=== PATIENT | female | born 1945 | race Caucasian/White ===

== ENCOUNTER → 2016-08-02 | Outpatient (CLI) | payer MEDICARE, MEDICAID ==
[~2016-08-02] MED LIST: AMBR1TAB PO; CIPR-217 PO; CYANOCOBALAMIN (B-12) 1000 MCG/1 ML VIAL IM ONE; CYANOCOBALAMIN (B-12) 1000 MCG/1 ML VIAL ONE; OXY20CRT PO; TEMA30CA PO; WARF3TAB22 PO
[2016-08-02 13:24] VITALS: BP 125/89
== END | disposition home or self-care (01) ==
LOC: CHF HDHVI 13:05
PROVIDERS: ATTEND Internal Medicine Cardiovascular Disease
DX: I27.0 Primary pulmonary hypertension (principal); D64.9 Anemia, unspecified; E78.00 Pure hypercholesterolemia, unspecified; F32.9 Major depressive disorder, single episode, unspecified
CPT/HCPCS: 93701; 96372; G0463; J3420

== ENCOUNTER → 2016-10-05 | Outpatient (CLI) | payer MEDICARE, MEDICAID ==
[2016-10-05 14:00] VITALS: BP 125/83
== END | disposition home or self-care (01) ==
LOC: CHF HDHVI 13:05
PROVIDERS: ATTEND Internal Medicine Cardiovascular Disease
DX: I11.0 Hypertensive heart disease with heart failure (principal); I50.9 Heart failure, unspecified; D64.9 Anemia, unspecified; E11.9 Type 2 diabetes mellitus without complications
CPT/HCPCS: 93701; 96372; G0463; J3420

== ENCOUNTER → 2016-11-03 | Outpatient (CLI) | payer MEDICARE, MEDICAID ==
[2016-11-03 14:20] VITALS: BP 105/76
[2016-11-03 14:34] VITALS: BP 110/69
== END | disposition home or self-care (01) ==
LOC: CHF HDHVI 14:29
PROVIDERS: ATTEND Internal Medicine Cardiovascular Disease
DX: I50.9 Heart failure, unspecified (principal); I27.2 Other secondary pulmonary hypertension; R53.83 Other fatigue
CPT/HCPCS: 96372; G0463; J3420

== ENCOUNTER 2016-11-07 09:16 | Emergency (ER) | payer MEDICARE, MEDICAID ==
[~2016-11-07] VITALS: Ht 167.6 cm; Wt 102.1 kg
[~2016-11-07 09:16] MED LIST changes: -CYANOCOBALAMIN (B-12) 1000 MCG/1 ML VIAL IM ONE; -CYANOCOBALAMIN (B-12) 1000 MCG/1 ML VIAL ONE
[2016-11-07] MEDS ORDERED: KETOROLAC TROMETH 60MG/2ML VIAL IM ONE (10:30)
[2016-11-07] MEDS ORDERED: METHOCARBAMOL 500 MG TAB PO ONE (11:30)
[2016-11-07 12:58] VITALS: BP 112/67
[2016-11-09] MEDS ORDERED: RIOC1TAB9 PO (23:38)
== END 2016-11-07 13:28 | disposition home or self-care (01) ==
LOC: EDBD 09:16 → ER 09:18
DX: S82.54XA Nondisplaced fracture of medial malleolus of right tibia, initial encounter for closed fracture (principal); S80.01XA Contusion of right knee, initial encounter; E11.9 Type 2 diabetes mellitus without complications; I10 Essential (primary) hypertension; M19.90 Unspecified osteoarthritis, unspecified site; V49.9XXA Car occupant (driver) (passenger) injured in unspecified traffic accident, initial encounter; Y93.89 Activity, other specified; Y99.8 Other external cause status; Y92.89 Other specified places as the place of occurrence of the external cause; Z91.040 Latex allergy status
CPT/HCPCS: 29515; 73560; 73610; 96372; 99284; J1885

== ENCOUNTER → 2017-01-29 | Outpatient (CLI) | payer MEDICARE, MEDICAID ==
[~2017-01-29] MED LIST changes: +CYANOCOBALAMIN (B-12) 1000 MCG/1 ML VIAL IM ONE; +CYANOCOBALAMIN (B-12) 1000 MCG/1 ML VIAL ONE; +METO10TA3 PO; +RIOC1TAB9 PO
[2017-01-29 13:15] VITALS: BP 136/72
[2017-01-29 14:25] VITALS: BP 108/64
[2017-01-29 16:56] LABS: Basophils # (auto) 0 uL; CONDITION Y; Eosinophils # (auto) 0.2 uL; Eosinophils % (auto) 3.9 % (0.0-7.0); Hemoglobin 13.4 g/dL (12.2-16.2); Lymphocytes # (auto) 1.9 uL; Mean Corpuscular Hemoglobin 30.3 pg (28.0-32.0); Mean Corpuscular Hgb Conc. 33.4 g/dL (32.0-36.0); Mean Corpuscular Volume 90.7 fL (80.0-100.0); Mean Platelet Volume 9.6 fL (7.4-10.4); Monocytes # (auto) 0.4 uL; Monocytes % (auto) 8.5 % (0.0-12.0); Neutrophils # (auto) 1.8 uL; Neutrophils % (auto) 41.6 % (37.0-80.0); Platelet Count (auto) 248 10^3/uL (140-450); Red Cell Distribution Width 14.1 % (11.6-16.0); White Blood Cell 4.2 10^3/uL (4.4-10.8)
[2017-01-29 17:16] LABS: Albumin 3.2 g/dL (3.4-5.0); BUN/Creatinine Ratio 11.4; Bilirubin, Total 0.3 mg/dL (0.2-1.0); Calcium 8.2 mg/dL (8.5-10.1); Magnesium 2.5 mg/dL (1.6-2.6); Potassium 3.5 mmol/L (3.5-5.1); Total Protein 6.9 g/dL (6.4-8.2)
== END | disposition home or self-care (01) ==
LOC: CHF HDHVI 13:13
PROVIDERS: ATTEND Internal Medicine Cardiovascular Disease
DX: I10 Essential (primary) hypertension (principal); E11.9 Type 2 diabetes mellitus without complications; D64.9 Anemia, unspecified; E55.9 Vitamin D deficiency, unspecified; Z79.899 Other long term (current) drug therapy
CPT/HCPCS: 36415; 80053; 82306; 83036; 83735; 85025; 93701; 96372; G0463; J3420

== ENCOUNTER → 2017-03-07 | Outpatient (CLI) | payer MEDICARE, MEDICAID ==
[2017-03-07 14:25] VITALS: BP 113/60
[2017-03-07 15:30] VITALS: BP 113/60
== END | disposition home or self-care (01) ==
LOC: CHF HDHVI 14:15
PROVIDERS: ATTEND Internal Medicine Cardiovascular Disease
DX: I11.0 Hypertensive heart disease with heart failure (principal); I50.9 Heart failure, unspecified
CPT/HCPCS: 93701; 96372; G0463; J3420

== ENCOUNTER → 2017-04-10 | Outpatient (CLI) | payer MEDICARE, MEDICAID ==
[~2017-04-10] MED LIST changes: -CYANOCOBALAMIN (B-12) 1000 MCG/1 ML VIAL IM ONE; -CYANOCOBALAMIN (B-12) 1000 MCG/1 ML VIAL ONE
[2017-04-10 12:35] VITALS: BP 148/68
[2017-04-10 13:15] VITALS: BP 158/76
[2017-04-10 13:22] LABS: INR 1.1 (0.7-1.3); Prothrombin Time 13.7 sec (9.0-12.0)
[2017-04-10 16:36] LABS: Potassium 4.1 mmol/L (3.5-5.1)
== END | disposition home or self-care (01) ==
LOC: CHF HDHVI 12:36
PROVIDERS: ATTEND Internal Medicine Cardiovascular Disease
DX: E87.6 Hypokalemia (principal); R94.4 Abnormal results of kidney function studies; I10 Essential (primary) hypertension; Z79.01 Long term (current) use of anticoagulants
CPT/HCPCS: 36415; 82565; 84132; 84520; 85610; 93701; G0463

== ENCOUNTER → 2017-07-04 | Outpatient (CLI) | payer MEDICARE, MEDICAID ==
[~2017-07-04] VITALS: Ht 30.5 cm; Wt 0.5 kg
[~2017-07-04] MED LIST changes: +CYANOCOBALAMIN (B-12) 1000 MCG/1 ML VIAL IM ONE; +CYANOCOBALAMIN (B-12) 1000 MCG/1 ML VIAL ONE
[2017-07-04 10:15] VITALS: BP 142/83
[2017-07-04 11:00] VITALS: BP 113/82
[2017-07-04 12:12] LABS: Basophils # (auto) 0.1 uL; Basophils % (auto) 1.3 % (0.0-2.0); Eosinophils # (auto) 0.1 uL; Eosinophils % (auto) 2.9 % (0.0-7.0); Hematocrit 41.5 % (36.0-46.0); Hemoglobin 13.7 g/dL (12.2-16.2); Lymphocytes # (auto) 2.2 uL; Lymphocytes % (auto) 56.8 % (10.0-50.0); Mean Corpuscular Hemoglobin 29.6 pg (28.0-32.0); Mean Corpuscular Hgb Conc. 33.1 g/dL (32.0-36.0); Mean Corpuscular Volume 89.5 fL (80.0-100.0); Monocytes # (auto) 0.4 uL; Monocytes % (auto) 9.6 % (0.0-12.0); Neutrophils # (auto) 1.2 uL; Neutrophils % (auto) 29.4 % (37.0-80.0); Nucleated Red Blood Cells % 0.1 %; Platelet Count (auto) 191 10^3/uL (140-450); Red Blood Cells 4.64 10^6/uL (4.0-5.20); Red Cell Distribution Width 13.6 % (11.8-14.3); White Blood Cell 3.9 10^3/uL (4.4-10.8)
[2017-07-04 12:28] LABS: Potassium 3.8 mmol/L (3.5-5.1)
[2017-07-04 12:29] LABS: BUN/Creatinine Ratio 11.1
[2017-07-04 12:30] LABS: Calcium 8.7 mg/dL (8.5-10.1)
== END | disposition home or self-care (01) ==
LOC: CHF HDHVI 10:23
PROVIDERS: ATTEND Internal Medicine Cardiovascular Disease
DX: D64.9 Anemia, unspecified (principal); D51.9 Vitamin B12 deficiency anemia, unspecified; I10 Essential (primary) hypertension; I27.21 Secondary pulmonary arterial hypertension; R53.83 Other fatigue
CPT/HCPCS: 36415; 80048; 82607; 85025; 96372; G0463; J3420

== ENCOUNTER → 2017-08-30 | Outpatient (CLI) | payer MEDICARE, MEDICAID ==
[2017-08-30 12:35] VITALS: BP 139/71
[2017-08-30 13:42] VITALS: BP 146/76
[2017-08-30 16:14] LABS: Albumin 3.4 g/dL (3.4-5.0); BUN/Creatinine Ratio 11.8; Bilirubin, Total 0.3 mg/dL (0.2-1.0); Calcium 8.6 mg/dL (8.5-10.1); Magnesium 2.9 mg/dL (1.6-2.6); Potassium 3.9 mmol/L (3.5-5.1); Total Protein 7.3 g/dL (6.4-8.2)
[2017-08-30 16:34] LABS: Basophils # (auto) 0.1 uL; Basophils % (auto) 1.2 % (0.0-2.0); Eosinophils # (auto) 0.1 uL; Hematocrit 40.6 % (36.0-46.0); Hemoglobin 13.4 g/dL (12.2-16.2); Lymphocytes # (auto) 1.9 uL; Lymphocytes % (auto) 43.5 % (10.0-50.0); Mean Corpuscular Hemoglobin 30.3 pg (28.0-32.0); Mean Corpuscular Hgb Conc. 33.1 g/dL (32.0-36.0); Mean Corpuscular Volume 91.4 fL (80.0-100.0); Monocytes # (auto) 0.5 uL; Monocytes % (auto) 11.8 % (0.0-12.0); Neutrophils # (auto) 1.8 uL; Neutrophils % (auto) 40.5 % (37.0-80.0); Nucleated Red Blood Cells % 0.9 %; Platelet Count (auto) 214 10^3/uL (140-450); Red Blood Cells 4.44 10^6/uL (4.0-5.20); Red Cell Distribution Width 13.9 % (11.8-14.3); White Blood Cell 4.4 10^3/uL (4.4-10.8)
== END | disposition home or self-care (01) ==
LOC: CHF HDHVI 12:34
PROVIDERS: ATTEND Internal Medicine Cardiovascular Disease
DX: E83.40 Disorders of magnesium metabolism, unspecified (principal); D64.9 Anemia, unspecified; I10 Essential (primary) hypertension; I27.21 Secondary pulmonary arterial hypertension; R06.02 Shortness of breath; E11.9 Type 2 diabetes mellitus without complications
CPT/HCPCS: 36415; 80053; 83735; 85025; 85610; 93701; 94618; 96372; G0463; J3420

== ENCOUNTER → 2017-11-07 | Outpatient (CLI) | payer MEDICARE, MEDICAID ==
[2017-11-07 10:05] VITALS: BP 148/67
[2017-11-07 11:00] VITALS: BP 126/75
[2017-11-07 12:13] LABS: Basophils # (auto) 0 uL; Eosinophils # (auto) 0.1 uL; Eosinophils % (auto) 2.1 % (0.0-7.0); Hematocrit 41.4 % (36.0-46.0); Hemoglobin 13.5 g/dL (12.2-16.2); Lymphocytes # (auto) 1.7 uL; Lymphocytes % (auto) 43.2 % (10.0-50.0); Mean Corpuscular Hemoglobin 29.3 pg (28.0-32.0); Mean Corpuscular Hgb Conc. 32.7 g/dL (32.0-36.0); Mean Corpuscular Volume 89.6 fL (80.0-100.0); Monocytes # (auto) 0.3 uL; Monocytes % (auto) 8.2 % (0.0-12.0); Neutrophils # (auto) 1.7 uL; Neutrophils % (auto) 45.5 % (37.0-80.0); Nucleated Red Blood Cells % 0.1 %; Platelet Count (auto) 221 10^3/uL (140-450); Red Blood Cells 4.62 10^6/uL (4.0-5.20); Red Cell Distribution Width 13.6 % (11.8-14.3); White Blood Cell 3.8 10^3/uL (4.4-10.8)
[2017-11-07 12:18] LABS: BUN/Creatinine Ratio 14.3; Calcium 8.7 mg/dL (8.5-10.1); Potassium 3.7 mmol/L (3.5-5.1)
== END | disposition home or self-care (01) ==
LOC: CHF HDHVI 10:11
PROVIDERS: ATTEND Internal Medicine Cardiovascular Disease
DX: D51.9 Vitamin B12 deficiency anemia, unspecified (principal); I11.0 Hypertensive heart disease with heart failure; I50.23 Acute on chronic systolic (congestive) heart failure; D64.9 Anemia, unspecified; E11.9 Type 2 diabetes mellitus without complications; I27.21 Secondary pulmonary arterial hypertension; R53.83 Other fatigue
CPT/HCPCS: 36415; 80048; 85025; 85610; 96372; G0463; J3420

== ENCOUNTER → 2018-04-10 | Outpatient (CLI) | payer MEDICARE, MEDICAID ==
[2018-04-10 12:35] VITALS: BP 107/66
[2018-04-10 15:41] LABS: Basophils # (auto) 0 uL; Basophils % (auto) 0.9 % (0.0-2.0); Eosinophils # (auto) 0.1 uL; Eosinophils % (auto) 3.1 % (0.0-7.0); Hematocrit 40.7 % (36.0-46.0); Hemoglobin 13.8 g/dL (12.2-16.2); Lymphocytes # (auto) 2.1 uL; Lymphocytes % (auto) 43.9 % (10.0-50.0); Mean Corpuscular Hemoglobin 30.4 pg (28.0-32.0); Mean Corpuscular Hgb Conc. 33.8 g/dL (32.0-36.0); Monocytes # (auto) 0.4 uL; Monocytes % (auto) 7.8 % (0.0-12.0); Neutrophils # (auto) 2.1 uL; Neutrophils % (auto) 44.3 % (37.0-80.0); Nucleated Red Blood Cells % 0.6 %; Platelet Count (auto) 194 10^3/uL (140-450); Red Blood Cells 4.52 10^6/uL (4.0-5.20); Red Cell Distribution Width 14.1 % (11.8-14.3); White Blood Cell 4.7 10^3/uL (4.4-10.8)
[2018-04-10 15:48] LABS: BUN/Creatinine Ratio 15.3; Calcium 8.2 mg/dL (8.5-10.1); Magnesium 2.4 mg/dL (1.6-2.6); Potassium 3.8 mmol/L (3.5-5.1)
== END | disposition home or self-care (01) ==
LOC: CHF HDHVI 11:49
PROVIDERS: ATTEND Internal Medicine Cardiovascular Disease
DX: D64.9 Anemia, unspecified (principal); E83.40 Disorders of magnesium metabolism, unspecified; I10 Essential (primary) hypertension
CPT/HCPCS: 36415; 80048; 82607; 83735; 85025; 93701; 96372; G0463; J3420

== ENCOUNTER → 2018-06-11 | Outpatient (CLI) | payer MEDICARE, MEDICAID ==
[2018-06-11 11:30] VITALS: BP 124/61
[2018-06-11 12:22] VITALS: BP 123/74
== END | disposition home or self-care (01) ==
LOC: CHF HDHVI 11:33
PROVIDERS: ATTEND Internal Medicine Cardiovascular Disease
DX: I27.21 Secondary pulmonary arterial hypertension (principal); R53.83 Other fatigue; R53.81 Other malaise; E11.9 Type 2 diabetes mellitus without complications; M25.571 Pain in right ankle and joints of right foot; I11.0 Hypertensive heart disease with heart failure; I50.22 Chronic systolic (congestive) heart failure; J44.9 Chronic obstructive pulmonary disease, unspecified; E78.5 Hyperlipidemia, unspecified; M19.90 Unspecified osteoarthritis, unspecified site; I25.10 Atherosclerotic heart disease of native coronary artery without angina pectoris; I48.91 Unspecified atrial fibrillation; E78.00 Pure hypercholesterolemia, unspecified; F32.9 Major depressive disorder, single episode, unspecified; Z79.01 Long term (current) use of anticoagulants; Z79.891 Long term (current) use of opiate analgesic; Z95.0 Presence of cardiac pacemaker
CPT/HCPCS: 93701; 96372; G0463; J3420

== ENCOUNTER → 2018-09-19 | Outpatient (CLI) | payer MEDICARE, MEDICAID ==
[2018-09-19 12:20] VITALS: BP 138/65
--- NOTE | 2018-09-19 12:20 | NUR ---
PT. TO [facility]F CLINIC FOR EVAL. AND TX. PT. IS TEARFUL AT THIS TIME, SAYING SHE IS HAVING TO GIVE AWAY HER PUPPIES. PT. LAST SEEN IN CLINIC 3 MONTHS AGO WITH HX OF NON COMPLIANCE ON FOLLOW UP APPTS IN CLINIC , NOW PT. LIVING IN [place] WITH FAMILY. NEW ORDERS RECEIVED AND CARRIED OUT SEE NICOLE ASSESS.
--- NOTE | 2018-09-19 12:50 | NUR ---
CARDIODYNAMICS DONE WITH RESULTS REVIEWED WITH PT, AND CHARTED. PT'S WT HAS BEEN STABLE FOR PAST THREE MOS. PT STATES SHE HAS MORE ENERGY BUT ALSO HAS EPISODES OF DIZZINESS AND WANTS PACEMAKER REPLACED. PT. HAS APPT. WITH DR. COREAS IN 30 DAYS, AND LAST INTERROGATION WAS DONE APPROX. 3 MOS. AGO WITH NO SPECIFIC INSTRUCTIONS ON FOLLOW UP PER PT.
--- NOTE | 2018-09-19 12:51 | NUR ---
NOTE: CARDIODYNAMICS SHOW ATRIAL PACED AT 65 WITH 100% CAPTURE. SAME PULSE ON LAST VISIT OF
[2018-09-19 13:15] VITALS: BP 127/75
--- NOTE | 2018-09-19 13:15 | NUR ---
Discharge Instructions See e-MAR for any mediations given with this visit. Patient education given on disease process. Patient verbalized understanding. Previous labs reviewed. Patient discharged in stable condition with after care instructions and follow up appointment.PT. TO FOLLOW UP WITH APPT. WITH DR. COREAS PER APPT.
[2018-09-19 15:52] LABS: Basophils # (auto) 0 uL; Basophils % (auto) 0.7 % (0.0-2.0); Eosinophils # (auto) 0.1 uL; Eosinophils % (auto) 1.9 % (0.0-7.0); Hematocrit 43.1 % (36.0-46.0); Hemoglobin 14.4 g/dL (12.2-16.2); Lymphocytes # (auto) 1.8 uL; Lymphocytes % (auto) 37.1 % (10.0-50.0); Mean Corpuscular Hemoglobin 29.9 pg (28.0-32.0); Mean Corpuscular Hgb Conc. 33.4 g/dL (32.0-36.0); Mean Corpuscular Volume 89.5 fL (80.0-100.0); Monocytes # (auto) 0.6 uL; Monocytes % (auto) 11.2 % (0.0-12.0); Neutrophils # (auto) 2.4 uL; Neutrophils % (auto) 49.1 % (37.0-80.0); Nucleated Red Blood Cells % 0.4 %; Platelet Count (auto) 218 10^3/uL (140-450); Red Blood Cells 4.82 10^6/uL (4.0-5.20); Red Cell Distribution Width 13.9 % (11.8-14.3); White Blood Cell 4.9 10^3/uL (4.4-10.8)
[2018-09-19 16:01] LABS: Albumin 3.8 g/dL (3.4-5.0); BUN/Creatinine Ratio 13.4; Calcium 8.9 mg/dL (8.5-10.1); Potassium 3.7 mmol/L (3.5-5.1)
[2018-09-19 16:03] LABS: Bilirubin, Total 0.3 mg/dL (0.2-1.0); Total Protein 7.7 g/dL (6.4-8.2)
== END | disposition home or self-care (01) ==
LOC: CHF HDHVI 11:53
PROVIDERS: ATTEND Internal Medicine Cardiovascular Disease
DX: D51.9 Vitamin B12 deficiency anemia, unspecified (principal); E55.9 Vitamin D deficiency, unspecified; I27.21 Secondary pulmonary arterial hypertension; I25.10 Atherosclerotic heart disease of native coronary artery without angina pectoris; E11.9 Type 2 diabetes mellitus without complications; I10 Essential (primary) hypertension
CPT/HCPCS: 36415; 80053; 82306; 82607; 83036; 85025; 93701; 96372; G0463; J3420

== ENCOUNTER → 2018-11-21 | Outpatient (CLI) | payer MEDICARE, MEDICAID ==
[~2018-11-21] MED LIST changes: -CYANOCOBALAMIN (B-12) 1000 MCG/1 ML VIAL IM ONE
[2018-11-21 11:45] VITALS: BP 123/79
[2018-11-21 12:30] VITALS: BP 138/68
--- NOTE | 2018-11-21 12:30 | NUR ---
IN TO CLINIC FOR PAH FOLLOWUP. WITHOUT DISTRESS OR DISCOMFORT. VERBALIZING EASILY. CARDIODYNAMICS DONE AND REVIEWED BY NEAL STERLING. CLINIC PROVIDER CONSULTED AND ORDERS RECEIVED. MEDICATED PER ORDER. DISCHARGED TO SELF CARE WITHOUT DISTRESS. MEDICATION ADMINISTRATION VITAMIN B12 1000 MCG TO LEFT DELTOID AT 1218
[2018-11-21 15:55] LABS: Albumin 3.8 g/dL (3.4-5.0); Calcium 8.7 mg/dL (8.5-10.1); Magnesium 2.5 mg/dL (1.6-2.6); Potassium 3.8 mmol/L (3.5-5.1)
[2018-11-21 15:58] LABS: BUN/Creatinine Ratio 16.9; Bilirubin, Total 0.6 mg/dL (0.2-1.0); Total Protein 7.5 g/dL (6.4-8.2)
[2018-11-21 16:01] LABS: Basophils # (auto) 0 uL; Basophils % (auto) 0.7 % (0.0-2.0); Eosinophils # (auto) 0.1 uL; Eosinophils % (auto) 1.1 % (0.0-7.0); Hematocrit 40.3 % (36.0-46.0); Hemoglobin 13.3 g/dL (12.2-16.2); Lymphocytes # (auto) 2.1 uL; Lymphocytes % (auto) 41.4 % (10.0-50.0); Mean Corpuscular Hemoglobin 29.6 pg (28.0-32.0); Mean Corpuscular Hgb Conc. 33.1 g/dL (32.0-36.0); Mean Corpuscular Volume 89.3 fL (80.0-100.0); Monocytes # (auto) 0.5 uL; Monocytes % (auto) 10.3 % (0.0-12.0); Neutrophils # (auto) 2.4 uL; Neutrophils % (auto) 46.5 % (37.0-80.0); Nucleated Red Blood Cells % 0.6 %; Platelet Count (auto) 209 10^3/uL (140-450); Red Blood Cells 4.51 10^6/uL (4.0-5.20); Red Cell Distribution Width 14.1 % (11.8-14.3); White Blood Cell 5.1 10^3/uL (4.4-10.8)
== END | disposition home or self-care (01) ==
LOC: CHF HDHVI 11:30
PROVIDERS: ATTEND Internal Medicine Cardiovascular Disease
DX: D64.9 Anemia, unspecified (principal); E83.40 Disorders of magnesium metabolism, unspecified; I11.0 Hypertensive heart disease with heart failure; I50.9 Heart failure, unspecified
CPT/HCPCS: 36415; 80053; 83735; 85025; J3420

== ENCOUNTER → 2019-01-27 | Outpatient (CLI) | payer MEDICARE, MEDICAID ==
[~2019-01-27] MED LIST changes: +CYANOCOBALAMIN (B-12) 1000 MCG/1 ML VIAL IM ONE
[2019-01-27 12:25] VITALS: BP 141/71
--- NOTE | 2019-01-27 12:45 | NUR ---
PATIENT REFUSING TO ALLOW LAB DRAW, PATIENT REFUSES 6MWT AND CARDIODYNAMICS WELL.
--- NOTE | 2019-01-27 13:15 | NUR ---
PATIENT EDUCATED ON THE IMPORTANCE OF TEST IN MANAGING PAH AND GOING TO MD APPT. FOR MEDICATION MANAGEMENT.
[2019-01-27 13:51] VITALS: BP 162/67
--- NOTE | 2019-01-27 13:51 | NUR ---
[facility] CLINIC Discharge Instructions See e-MAR for any mediations given with this visit. Patient education given on disease process. Patient verbalized understanding. Previous labs reviewed. Patient discharged in stable condition with after care instructions and follow up appointment. NOTE INR 3.6, PATIENT WAS TAKING EXTRA DOSES PATIENT EDUCATED TO TAKE COUMADIN PRESCRIBED. B12 IM L DELTOID ADMIN BY JAELYN MACDONALD. CARDIODYNAMICS PERFORMED BY JAELYN MACDONALD AND REVIEWED BY ANNA STERLING
[2019-01-27 16:16] LABS: Albumin 3.7 g/dL (3.4-5.0); Calcium 8.8 mg/dL (8.5-10.1); Potassium 3.8 mmol/L (3.5-5.1)
[2019-01-27 16:19] LABS: BUN/Creatinine Ratio 15.7; Bilirubin, Total 0.5 mg/dL (0.2-1.0); Total Protein 7.6 g/dL (6.4-8.2)
[2019-01-27 17:36] LABS: Basophils # (auto) 0 uL; Basophils % (auto) 0.7 % (0.0-2.0); Eosinophils # (auto) 0.1 uL; Eosinophils % (auto) 1.3 % (0.0-7.0); Hematocrit 42.7 % (36.0-46.0); Hemoglobin 14.1 g/dL (12.2-16.2); Lymphocytes # (auto) 1.8 uL; Lymphocytes % (auto) 32.2 % (10.0-50.0); Mean Corpuscular Hemoglobin 29.4 pg (28.0-32.0); Mean Corpuscular Hgb Conc. 33.1 g/dL (32.0-36.0); Mean Corpuscular Volume 88.7 fL (80.0-100.0); Monocytes # (auto) 0.4 uL; Monocytes % (auto) 6.8 % (0.0-12.0); Neutrophils # (auto) 3.3 uL; Platelet Count (auto) 194 10^3/uL (140-450); Red Blood Cells 4.81 10^6/uL (4.0-5.20); Red Cell Distribution Width 14.9 % (11.8-14.3); White Blood Cell 5.6 10^3/uL (4.4-10.8)
== END | disposition home or self-care (01) ==
LOC: CHF HDHVI 12:26
PROVIDERS: ATTEND Internal Medicine Cardiovascular Disease
DX: D51.9 Vitamin B12 deficiency anemia, unspecified (principal); R53.1 Weakness; I25.10 Atherosclerotic heart disease of native coronary artery without angina pectoris; I48.91 Unspecified atrial fibrillation; K90.9 Intestinal malabsorption, unspecified; I10 Essential (primary) hypertension; Z79.899 Other long term (current) drug therapy
CPT/HCPCS: 36415; 80053; 82306; 82607; 83036; 85025; 85610; 93701; 96372; G0463; J3420

== ENCOUNTER → 2019-03-24 | Outpatient (CLI) | payer MEDICARE, MEDICAID ==
[~2019-03-24] MED LIST changes: -CYANOCOBALAMIN (B-12) 1000 MCG/1 ML VIAL IM ONE; -CYANOCOBALAMIN (B-12) 1000 MCG/1 ML VIAL ONE; +DIPH25CA66 PO; +LINA290C PO; +TIZA4CAP7 PO
[2019-03-24 12:45] VITALS: BP 162/81
--- NOTE | 2019-03-24 12:45 | NUR ---
CHF PT ARRIVED AT THE CHF CLINIC FOR PREOP CXR, EKG LAB. VSS 0 DISTRESS
[2019-03-24 13:00] VITALS: BP 178/61
--- NOTE | 2019-03-24 13:00 | NUR ---
Discharge Instructions See e-MAR for any mediations given with this visit. Patient education given on disease process. Patient verbalized understanding. Previous labs reviewed. Patient discharged in stable condition with after care instructions and follow up appointment.
[2019-03-24 16:12] LABS: Basophils # (auto) 0 uL; Basophils % (auto) 0.5 % (0.0-2.0); Eosinophils # (auto) 0.1 uL; Hematocrit 43.7 % (36.0-46.0); Hemoglobin 14.7 g/dL (12.2-16.2); Lymphocytes # (auto) 2.9 uL; Lymphocytes % (auto) 40.1 % (10.0-50.0); Mean Corpuscular Hemoglobin 29.9 pg (28.0-32.0); Mean Corpuscular Hgb Conc. 33.8 g/dL (32.0-36.0); Mean Corpuscular Volume 88.6 fL (80.0-100.0); Monocytes # (auto) 0.6 uL; Neutrophils # (auto) 3.6 uL; Neutrophils % (auto) 49.4 % (37.0-80.0); Platelet Count (auto) 204 10^3/uL (140-450); Red Blood Cells 4.93 10^6/uL (4.0-5.20); Red Cell Distribution Width 14.5 % (11.8-14.3); White Blood Cell 7.2 10^3/uL (4.4-10.8)
[2019-03-24 16:20] LABS: BUN/Creatinine Ratio 11.1; Calcium 8.7 mg/dL (8.5-10.1); Potassium 3.6 mmol/L (3.5-5.1)
[2019-03-24 16:24] LABS: INR 1.04 (0.9-1.15); Partial Thromboplastin Time 26.8 sec (23.64-32.05)
== END | disposition home or self-care (01) ==
LOC: Rad HDHVI 12:05
PROVIDERS: ATTEND Internal Medicine Cardiovascular Disease
DX: Z01.812 Encounter for preprocedural laboratory examination (principal); I27.0 Primary pulmonary hypertension; I49.5 Sick sinus syndrome; Z95.0 Presence of cardiac pacemaker; E11.9 Type 2 diabetes mellitus without complications
CPT/HCPCS: 36415; 71046; 80048; 85025; 85610; 85730; 93005; G0463

== ENCOUNTER 2019-03-26 08:03 | Day surgery (SDC) | payer MEDICARE, MEDICAID ==
[~2019-03-26] VITALS: Ht 167.6 cm; Wt 93.0 kg
[~2019-03-26 08:03] MED LIST changes: -AMBR1TAB PO; -CIPR-217 PO; -METO10TA3 PO; -TEMA30CA PO
[2019-03-26] MEDS ORDERED: MIDAZOLAM HCL 1MG/1ML-2 ML VIAL ONE (10:10)
[2019-03-26] MEDS ORDERED: fentaNYL CITRATE 100 MCG/2 ML VL ONE (10:10)
[2019-03-26] MEDS ORDERED: VANCOMYCIN HCL 1000 MG VL ONE (10:10)
[2019-03-26] MEDS ORDERED: VANCOMYCIN 1GM/250ML 250 ML IV ONE (10:11)
[2019-03-26] MEDS ORDERED: LIDOCAINE 2%HCL (LOCAL ANESTH.) INJ 20ML MDV ONE (10:29)
[2019-03-26] MEDS ORDERED: diphenhdrAMINE HCL 50 MG/1 ML VL ONE (10:35)
[2019-03-26] MEDS ORDERED: HYDROcodone-ACET 5/325MG TAB PO PRN (11:45)
== END 2019-03-26 13:00 | disposition home or self-care (01) ==
LOC: CATH 08:03
PROVIDERS: ATTEND Internal Medicine
DX: Z45.010 Encounter for checking and testing of cardiac pacemaker pulse generator [battery] (principal); I25.2 Old myocardial infarction; I27.21 Secondary pulmonary arterial hypertension; F32.9 Major depressive disorder, single episode, unspecified; F41.9 Anxiety disorder, unspecified; Z79.899 Other long term (current) drug therapy; Z91.040 Latex allergy status; Z79.01 Long term (current) use of anticoagulants
CPT/HCPCS: 33228; C1785; J1200; J2250; J3010; J3370; J7030; 99152; 99153

== ENCOUNTER → 2019-04-03 | Outpatient (CLI) | payer MEDICARE, MEDICAID ==
[~2019-04-03] MED LIST changes: +CYANOCOBALAMIN (B-12) 1000 MCG/1 ML VIAL IM ONE; +CYANOCOBALAMIN (B-12) 1000 MCG/1 ML VIAL ONE; +KETOROLAC TROMETH 60MG/2ML VIAL IM ONE; +KETOROLAC TROMETH 60MG/2ML VIAL ONE
[2019-04-03 12:05] VITALS: BP 110/71
[2019-04-03 12:50] VITALS: BP 165/77
--- NOTE | 2019-04-03 12:50 | NUR ---
IN TO CLINIC FOR 'STITCHES REMOVED". PT IS S/P GENERATOR CHANGE ON 03/26/19. STERI STRIP INTACT OVER SURGICAL SITE. NOTED TO HAVE ELEVATED RAISED AREAS AROUND STERI STRIPS. PT REPORTS THAT SHE WAS ALLERGIC TO THE DRESSING AND THAT SHE HAD TO REMOVE IT. PT INSISTS ON HAVING STERI STRIPS REMOVED. CRYING, RAISING VOICE . INSTRUCTED ON NEED TO KEEP STERI STRIPS ON THE PACER SITE. CLEANSED WITH CHLORAPREP AND NON ADHERING DRESSING APPLIED AND THE COVERED WITH NON-LATEX OCCLUSIVE DRESSING. INSTRUCTED THAT SHE CAN SHOWER BUT DO NOT SUBMERGE IN WATER AND ONLY LET THE WATER TRICKLE OVER THE DRESSING. PT REPEATS BACK INSTRUCTIONS AND ADDITIONAL QUESTIONS DENIED. PT HAS MULTIPLE COMPLAINTS REGARDING HER HEALTHCARE AND [facility] MEDICINES AND THE RATE OF THE PACEMAKER. PT HAS APPOINTMENT WITH PACER INTERROGATION FOR Sunday04/08/[address] COREAS ON 05/06/19. RATES OVERALL PAIN TO SITE 8/10 CURRENTLY AND REPORTS FATIGUE. CLINIC PROVIDER CONSULTED AND ORDERS RECIEVED. MEDICATED PER ORDER. DISCHARGED TO SELF CARE IN NO DISTRESS OR DISCOMFORT. MEDICATION ADMINISTRATION TORADOL 60 MG IM TO LEFT DELTOID AT 1240 VITAMIN B12 1000 MCG IM TO LEFT DELTOID AT 1242
== END | disposition home or self-care (01) ==
LOC: CHF HDHVI 12:10
PROVIDERS: ATTEND Internal Medicine Cardiovascular Disease
DX: I27.21 Secondary pulmonary arterial hypertension (principal); I25.2 Old myocardial infarction; F41.9 Anxiety disorder, unspecified; F32.9 Major depressive disorder, single episode, unspecified; E11.9 Type 2 diabetes mellitus without complications; Z79.899 Other long term (current) drug therapy; Z79.01 Long term (current) use of anticoagulants; Z95.0 Presence of cardiac pacemaker
CPT/HCPCS: 96372; G0463; J1885; J3420

== ENCOUNTER → 2019-06-05 | Outpatient (CLI) | payer MEDICARE, MEDICAID ==
[~2019-06-05] MED LIST changes: -KETOROLAC TROMETH 60MG/2ML VIAL IM ONE; -KETOROLAC TROMETH 60MG/2ML VIAL ONE
[2019-06-05 11:20] VITALS: BP 124/70
[2019-06-05 12:30] VITALS: BP 103/57
--- NOTE | 2019-06-05 12:30 | NUR ---
Discharge Instructions See e-MAR for any mediations given with this visit. Patient education given on disease process. Patient verbalized understanding. Previous labs reviewed. Patient discharged in stable condition with after care instructions and follow up appointment. medications VITAMIN B12 1000 MCG IM X1 LEFT DELTOID LOT # [id number] EXP 01/12 CRESTOR CALLED IN TO PATIENT INR 3.9 ADVISED TO TAKE HALF COUMADIN DOSE TONIGHT AND MAKE SURE TO TAKE COUMADIN IN THE EVENING, PT VERBALIZED UNDERSTANDING CARDIODYNAMICS COMPLETED BY ROCIO MACDONALD AND REVIEWED BY NEAL STERLING
[2019-06-05 15:50] LABS: Basophils # (auto) 0.1 uL; Basophils % (auto) 1.5 % (0.0-2.0); Eosinophils # (auto) 0.1 uL; Eosinophils % (auto) 2.3 % (0.0-7.0); Hematocrit 41.1 % (36.0-46.0); Hemoglobin 13.6 g/dL (12.2-16.2); Lymphocytes # (auto) 2.4 uL; Lymphocytes % (auto) 50.8 % (10.0-50.0); Mean Corpuscular Hemoglobin 29.9 pg (28.0-32.0); Mean Corpuscular Hgb Conc. 33.2 g/dL (32.0-36.0); Mean Corpuscular Volume 90.1 fL (80.0-100.0); Monocytes # (auto) 0.5 uL; Monocytes % (auto) 9.9 % (0.0-12.0); Neutrophils # (auto) 1.7 uL; Neutrophils % (auto) 35.5 % (37.0-80.0); Nucleated Red Blood Cells % 0.1 %; Platelet Count (auto) 230 10^3/uL (140-450); Red Blood Cells 4.56 10^6/uL (4.0-5.20); Red Cell Distribution Width 14.3 % (11.8-14.3); White Blood Cell 4.7 10^3/uL (4.4-10.8)
[2019-06-05 15:52] LABS: Urine Blood TRACE /uL (Negative); Urine Specific Gravity 1.013 (1.001-1.035)
[2019-06-05 15:58] LABS: Albumin 3.4 g/dL (3.4-5.0); Calcium 8.5 mg/dL (8.5-10.1); Magnesium 2.3 mg/dL (1.6-2.6); Potassium 3.5 mmol/L (3.5-5.1)
[2019-06-05 16:10] LABS: BUN/Creatinine Ratio 7.7; Bilirubin, Total 0.3 mg/dL (0.2-1.0); Total Protein 7.2 g/dL (6.4-8.2)
== END | disposition home or self-care (01) ==
LOC: CHF HDHVI 11:19
PROVIDERS: ATTEND Internal Medicine Cardiovascular Disease
DX: I27.21 Secondary pulmonary arterial hypertension (principal); R53.83 Other fatigue; D64.9 Anemia, unspecified; E83.40 Disorders of magnesium metabolism, unspecified; N39.0 Urinary tract infection, site not specified; I10 Essential (primary) hypertension; Z79.899 Other long term (current) drug therapy; Z79.01 Long term (current) use of anticoagulants
CPT/HCPCS: 36415; 80053; 81003; 83036; 83735; 85025; 85610; 87086; 93701; 96372; G0463; J3420

== ENCOUNTER → 2019-11-10 | Outpatient (CLI) | payer MEDICARE, MEDICAID ==
[2019-11-10 12:30] VITALS: BP 122/70
[2019-11-10 13:15] VITALS: BP 122/84
== END | disposition home or self-care (01) ==
LOC: CHF HDHVI 12:18
PROVIDERS: ATTEND Internal Medicine Cardiovascular Disease
DX: I27.21 Secondary pulmonary arterial hypertension (principal); I11.0 Hypertensive heart disease with heart failure; I50.9 Heart failure, unspecified; D64.9 Anemia, unspecified; Z79.01 Long term (current) use of anticoagulants; Z79.899 Other long term (current) drug therapy
CPT/HCPCS: 94618; 96372; G0463; J3420

== ENCOUNTER → 2019-12-11 | Outpatient (CLI) | payer MEDICARE, MEDICAID ==
[~2019-12-11] VITALS: Ht 30.5 cm; Wt 0.5 kg
[2019-12-11 12:30] VITALS: BP 120/65
--- NOTE | 2019-12-11 12:30 | NUR ---
CHF PT ARRIVED TO THE CHF CLINIC FOR MONTHLY PAH EVAL AND TX PER MD ORDER. A/OX4. AMBULATORY. PT STATED THAT SHE MISSED 1 1/2 DOSES OF COUMADIN AND DID NOT WANT TO DO INR TEST TODAY.
[2019-12-11 12:51] VITALS: BP 116/70
--- NOTE | 2019-12-11 12:51 | NUR ---
Discharge Instructions See e-MAR for any mediations given with this visit. Patient education given on disease process. Patient verbalized understanding. Previous labs reviewed. Patient discharged in stable condition with after care instructions and follow up appointment. PT TO HAVE ECHO TODAY AND RETURN TO CLINIC IN 1 MONTH FOR F/U AND EVAL PER MD ORDERS. NOTE VIT B12 IM L DELTOID ADMIN BY JANIS STERLING LOT #[id number] EXP 09/13
[2019-12-11 16:15] LABS: Basophils # (auto) 0.1 10 ^3/uL (0-0.2); Basophils % (auto) 0.6 % (0.0-2.0); Eosinophils # (auto) 0.1 10 ^3/uL (0-0.8); Eosinophils % (auto) 1.4 % (0.0-7.0); Hematocrit 42.8 % (36.0-46.0); Lymphocytes # (auto) 2.1 10 ^3/uL (0.4-5.4); Lymphocytes % (auto) 26.2 % (10.0-50.0); Mean Corpuscular Hemoglobin 29.5 pg (28.0-32.0); Mean Corpuscular Hgb Conc. 32.8 g/dL (32.0-36.0); Monocytes # (auto) 0.6 10 ^3/uL (0-1.3); Neutrophils # (auto) 5.2 10 ^3/uL (1.6-8.6); Neutrophils % (auto) 64.8 % (37.0-80.0); Platelet Count (auto) 185 10^3/uL (140-450); Red Blood Cells 4.75 10^6/uL (4.0-5.20); White Blood Cell 8.1 10^3/uL (4.4-10.8)
[2019-12-11 16:30] LABS: Albumin 3.7 g/dL (3.4-5.0); BUN/Creatinine Ratio 12.9; Calcium 8.7 mg/dL (8.5-10.1); Magnesium 2.4 mg/dL (1.6-2.6); Potassium 3.6 mmol/L (3.5-5.1)
[2019-12-11 16:32] LABS: Bilirubin, Total 0.6 mg/dL (0.2-1.0); Total Protein 7.6 g/dL (6.4-8.2)
== END | disposition home or self-care (01) ==
LOC: Rad HDHVI 12:47
PROVIDERS: ATTEND Internal Medicine
DX: I11.0 Hypertensive heart disease with heart failure (principal); I50.9 Heart failure, unspecified; R53.83 Other fatigue; I27.21 Secondary pulmonary arterial hypertension; D64.9 Anemia, unspecified; E83.40 Disorders of magnesium metabolism, unspecified; Z79.01 Long term (current) use of anticoagulants; Z79.899 Other long term (current) drug therapy
CPT/HCPCS: 36415; 80053; 83735; 85025; 93306; 96372; G0463; J3420

== ENCOUNTER → 2022-03-27 | Outpatient (CLI) | payer MEDICARE, MEDICAID ==
[~2022-03-27] MED LIST changes: -CYANOCOBALAMIN (B-12) 1000 MCG/1 ML VIAL IM ONE; -CYANOCOBALAMIN (B-12) 1000 MCG/1 ML VIAL ONE; +RIOC1TAB15 PO; -RIOC1TAB9 PO
[2022-03-27 12:04] LABS: Urine Blood Negative /uL (Negative); Urine Specific Gravity 1.007 (1.001-1.035)
== END | disposition home or self-care (01) ==
LOC: LAB 09:43
PROVIDERS: ATTEND Internal Medicine
DX: N39.0 Urinary tract infection, site not specified (principal); I11.0 Hypertensive heart disease with heart failure; I50.23 Acute on chronic systolic (congestive) heart failure; R53.83 Other fatigue; Z94.1 Heart transplant status
CPT/HCPCS: 81003; 87086